=== PATIENT | male | born 1950 | race Caucasian/White ===

== ENCOUNTER 2017-02-12 18:28 | Emergency (ER) | payer BC ==
[~2017-02-12 18:28] MED LIST: DARVOCET-N 1001 TAB PO; HYDROCODONE-APA1 T30 PO; NEURONTIN PO
== END 2017-02-12 19:13 | disposition home or self-care (01) ==
LOC: SED 18:28
DX: S61.012A Laceration without foreign body of left thumb without damage to nail, initial encounter (principal); X58.XXXA Exposure to other specified factors, initial encounter; Y92.009 Unspecified place in unspecified non-institutional (private) residence as the place of occurrence of the external cause
CPT/HCPCS: 12001; 99283